=== PATIENT | female | born 1975 ===

== ENCOUNTER 2024-01-11 11:30 | Inpatient (IN) | payer OTHER ==
[~2024-01-11] VITALS: Ht 165.1 cm; Wt 111.1 kg
[~2024-01-11 11:30] MED LIST: NABUMETONE500 MG PO; PERCOCET 5/3251 TAB PO
[2024-01-11] MEDS ORDERED: NORVASC10 MG PO (12:04)
[2024-01-11] MEDS ORDERED: HYZAAR 100-251 EACH PO (12:04)
[2024-01-18] MEDS ORDERED: CEFAZOLIN SODIUM 1,000 MG VIAL ONE ×2 (08:33→12:21)
[2024-01-18] MEDS ORDERED: TRANEXAMIC ACID 100MG/1ML (1000MG) AMPUL IV ONE ×3 (08:33→10:15)
[2024-01-18] MEDS ORDERED: OxyCODONE HCL/APAP UD (PERCOCET) PO PRN (09:00)
[2024-01-18] MEDS ORDERED: ONDANSETRON HCL 2 MG/ML VIAL IV PRN (09:00)
[2024-01-18] MEDS ORDERED: KETOROLAC TROMETHAMINE 60 MG VIAL IM ONE ×2 (09:31→10:15)
[2024-01-18] MEDS ORDERED: LIDOCAINE HCL 1%/Epi 20ML VIAL IJ ONE (09:32)
[2024-01-18] MEDS ORDERED: BUPIVACAINE HCL/PF 0.25% 30ML VIAL InF ONE ×2 (09:32→10:15)
[2024-01-18] MEDS ORDERED: CEFAZOLIN SODIUM 1,000 MG VIAL IV ONE (10:15)
[2024-01-18] MEDS ORDERED: LIDOCAINE HCL/EPINE 1%-Epi 30ML VIAL IJ ONE (10:15)
[2024-01-18] MEDS ORDERED: MORPHINE SULFATE 4 MG/ML VIAL IV ONE (10:30)
[2024-01-18] MEDS ORDERED: MORPHINE SULFATE 4 MG/ML CARTRIDGE IV SCH (12:00)
[2024-01-18] MEDS ORDERED: CEFAZOLIN SODIUM 1,000 MG VIAL IV SCH (12:00)
[2024-01-18] MEDS ORDERED: ENOXAPARIN SODIUM 30 MG/0.3 ML SYRINGE SUBCUTANEO SCH (21:00)
[2024-01-18] MEDS ORDERED: GABAPENTIN 100 MG CAPSULE PO SCH (21:00)
[2024-01-18] MEDS ORDERED: ORPHENADRINE CITRATE 100 MG TABLET PO SCH (21:00)
[2024-01-19 07:31] LABS: HEMATOCRIT 41.6 % (36.0-45.00); HEMOGLOBIN 14.1 g/dL (12.0-15.00); MEAN CELL VOLUME 85.7 fL (80.00-100.00); MEAN CORPUSCULAR HGB CONC 33.8 g/dl (32.0-36.0); RED BLOOD COUNT 4.86 M/uL (4.00-6.00); RED CELL DISTRIBUTION WIDTH 13.9 % (11.5-14.5)
[2024-01-19] MEDS ORDERED: ENALAPRILAT DIHYDRATE 1.25 MG/ML VIAL IV STA (08:35)
[2024-01-19 08:44] LABS: PLATELET COUNT 296 K/uL (150-450)
[2024-01-19] MEDS ORDERED: ENOXAPARIN SODIUM 30 MG/0.3 ML SYRINGE SUBCUTANEO SCH (09:00)
[2024-01-19] MEDS ORDERED: VITAMIN B COMPLEX 1 EACH PO SCH (12:06)
[2024-01-19] MEDS ORDERED: IRON FUM,PS/FOLIC ACID/VITC/B3 1 CAP CAPSULE PO SCH (12:07)
[2024-01-19] MEDS ORDERED: AMLODIPINE BESYLATE 10 MG TABLET PO STA (15:46)
[2024-01-19] MEDS ORDERED: LOSARTAN/HYDROCHLOROTHIAZIDE 1 UDTAB TABLET PO STA (15:46)
[2024-01-20 06:17] LABS: HEMATOCRIT 38.8 % (36.0-45.00); HEMOGLOBIN 13.2 g/dL (12.0-15.00); MEAN CELL VOLUME 84.7 fL (80.00-100.00); MEAN CORPUSCULAR HEMOGLOBIN 28.7 pg (27.00-32.0); MEAN CORPUSCULAR HGB CONC 33.9 g/dl (32.0-36.0); PLATELET COUNT 322 K/uL (150-450); RED BLOOD COUNT 4.59 M/uL (4.00-6.00); RED CELL DISTRIBUTION WIDTH 13.7 % (11.5-14.5)
[2024-01-20] MEDS ORDERED: LOSARTAN/HYDROCHLOROTHIAZIDE 1 UDTAB TABLET PO SCH (09:00)
[2024-01-20] MEDS ORDERED: AMLODIPINE BESYLATE 10 MG TABLET PO SCH (09:00)
[2024-01-20] MEDS ORDERED: NORFLEX100MG PO (11:57)
[2024-01-20] MEDS ORDERED: GABAPENTIN100 MG PO (12:00)
[2024-01-20] MEDS ORDERED: OXYC1TAB9 PO (12:01)
[2024-01-20] MEDS ORDERED: XARELTO10 MG PO (12:01)
== END 2024-01-20 18:35 | DRG 470 ==
LOC: O/R 01-18 05:55 → SURG 01-18 05:55 → SURH 01-18 09:45 → SURG 01-18 11:42
PROVIDERS: ADMIT Orthopaedic Surgery; ATTEND Orthopaedic Surgery
PROC: 0SRD0JZ Replacement of Left Knee Joint with Synthetic Substitute, Open Approach (ICD-10-PCS; principal; 2024-01-18 09:45)
DX: M17.12 Unilateral primary osteoarthritis, left knee (principal); M85.662 Other cyst of bone, left lower leg

== ENCOUNTER 2024-12-05 08:50 | Inpatient (IN) | payer OTHER ==
[~2024-12-05] VITALS: Ht 165.1 cm; Wt 115.7 kg
[~2024-12-05 08:50] MED LIST changes: +GABAPENTIN100 MG PO; +HYZAAR 100-251 EACH PO; +NORFLEX100MG PO; +NORVASC10 MG PO; +OXYC1TAB9 PO; +XARELTO10 MG PO
[2024-12-05] MEDS ORDERED: LOSARTAN-HCTZ1 EAC1 PO (09:02)
[2024-12-05 09:07] VITALS: BP 112/78
[2024-12-12] MEDS ORDERED: CEFAZOLIN SODIUM 1,000 MG VIAL IV ONE (09:15)
[2024-12-12] MEDS ORDERED: TRANEXAMIC ACID 100MG/1ML (1000MG) AMPUL IV ONE ×2 (09:15)
[2024-12-12] MEDS ORDERED: KETOROLAC TROMETHAMINE 60 MG VIAL IM ONE (09:30)
[2024-12-12] MEDS ORDERED: VANCOMYCIN HCL 1,000 MG VIAL IR ONE (09:30)
[2024-12-12] MEDS ORDERED: EPINEPHRINE HCL/PF 1 MG/ML AMPUL IR ONE (09:30)
[2024-12-12] MEDS ORDERED: ONDANSETRON HCL 2 MG/ML VIAL IV PRN (09:45)
[2024-12-12] MEDS ORDERED: OxyCODONE HCL/APAP UD (PERCOCET) PO PRN (09:45)
[2024-12-12] MEDS ORDERED: MORPHINE SULFATE 4 MG/ML VIAL IV ONE (10:30)
[2024-12-12] MEDS ORDERED: CEFAZOLIN SODIUM 1,000 MG VIAL IV SCH (12:00)
[2024-12-12] MEDS ORDERED: MORPHINE SULFATE 4 MG/ML CARTRIDGE IV SCH (12:00)
[2024-12-12 13:44] VITALS: BP 131/74
[2024-12-12] MEDS ORDERED: ENALAPRILAT DIHYDRATE 1.25 MG/ML VIAL IV PRN (14:45)
[2024-12-12 16:07] VITALS: BP 99/67
[2024-12-12 20:00] VITALS: BP 115/72
[2024-12-12] MEDS ORDERED: APIXABAN 2.5 MG TABLET PO SCH (21:00)
[2024-12-12] MEDS ORDERED: ORPHENADRINE CITRATE 100 MG TABLET PO SCH (21:00)
[2024-12-12] MEDS ORDERED: GABAPENTIN 100 MG CAPSULE PO SCH (21:00)
[2024-12-13 01:14] VITALS: BP 131/82
[2024-12-13 02:03] LABS: HEMATOCRIT 38.4 % (36.0-45.00); HEMOGLOBIN 12.7 g/dL (12.0-15.00); MEAN CELL VOLUME 83.8 fL (80.00-100.00); MEAN CORPUSCULAR HEMOGLOBIN 27.7 pg (27.00-32.0); PLATELET COUNT 352 K/uL (150-450); RED BLOOD COUNT 4.59 M/uL (4.00-6.00); RED CELL DISTRIBUTION WIDTH 15.3 % (11.5-14.5)
[2024-12-13 08:00] VITALS: BP 132/80
[2024-12-13] MEDS ORDERED: LOSARTAN/HYDROCHLOROTHIAZIDE 1 UDTAB TABLET PO SCH (09:00)
[2024-12-13] MEDS ORDERED: AMLODIPINE BESYLATE 10 MG TABLET PO SCH (09:00)
[2024-12-13] MEDS ORDERED: Cyanocobalamin/Mecobalamin 1 TAB.SL SL SCH (13:03)
[2024-12-13] MEDS ORDERED: IRON FUM,PS/FOLIC ACID/VITC/B3 1 CAP CAPSULE PO SCH (13:03)
[2024-12-13 16:03] VITALS: BP 118/74
[2024-12-13 16:05] LABS: ALBUMIN 2.8 gm/dL (3.4-5.0); BILIRUBIN TOTAL 1.55 mg/dL (0.3-1.2); CALCIUM 8.6 mg/dL (8.5-10.1); CREATININE SERUM 0.44 mg/dL (0.55-1.02); GFR 150.75; GLOBULINA 3.5 G/DL (2.4-3.5); POTASSIUM 4.95 mEq/L (3.5-5.1); TOTAL PROTEIN 6.3 gm/dL (6.4-8.2)
[2024-12-13] MEDS ORDERED: VITAMIN B COMPLEX 1 EACH PO SCH (17:00)
[2024-12-14 01:04] LABS: HEMATOCRIT 37.5 % (36.0-45.00); HEMOGLOBIN 12.5 g/dL (12.0-15.00); MEAN CELL VOLUME 83.1 fL (80.00-100.00); MEAN CORPUSCULAR HEMOGLOBIN 27.7 pg (27.00-32.0); MEAN CORPUSCULAR HGB CONC 33.3 g/dl (32.0-36.0); PLATELET COUNT 338 K/uL (150-450); RED BLOOD COUNT 4.51 M/uL (4.00-6.00); RED CELL DISTRIBUTION WIDTH 14.9 % (11.5-14.5)
[2024-12-14 01:13] VITALS: BP 107/73
[2024-12-14 08:00] VITALS: BP 131/80
[2024-12-14] MEDS ORDERED: ELIQUIS2.5 MG PO (11:58)
[2024-12-14] MEDS ORDERED: NORFLEX100MG PO (11:58)
[2024-12-14] MEDS ORDERED: GABAPENTIN100 MG PO (12:00)
[2024-12-14] MEDS ORDERED: OXYC1TAB9 PO (12:00)
== END 2024-12-14 14:08 | disposition home or self-care (01) | DRG 470 ==
LOC: OB/GYN 12-12 05:20 → O/R 12-12 05:20 → SURH 12-12 07:00 → OB/GYN 12-12 12:36
PROVIDERS: ADMIT Orthopaedic Surgery; ATTEND Orthopaedic Surgery
PROC: 0QU60JZ Supplement Right Upper Femur with Synthetic Substitute, Open Approach (ICD-10-PCS; 2024-12-12)
PROC: 0SRC0JZ Replacement of Right Knee Joint with Synthetic Substitute, Open Approach (ICD-10-PCS; principal; 2024-12-12 07:00)
DX: M17.11 Unilateral primary osteoarthritis, right knee (principal); D62 Acute posthemorrhagic anemia; I10 Essential (primary) hypertension; M85.661 Other cyst of bone, right lower leg; E66.9 Obesity, unspecified; Z96.653 Presence of artificial knee joint, bilateral